=== PATIENT | male | born 1965 | race Caucasian/White ===

== ENCOUNTER 2022-01-08 20:02 | Inpatient (IN) | payer OTHER, SELFPAY ==
--- NOTE | ~2022-01-08 | XR_ITS ---
EXAMINATION: XR chest 2V DATE: 01/08/2022 21:05 INDICATION: Chest pressure. Shortness of breath. TECHNIQUE: Frontal and lateral views of the chest were obtained. COMPARISON: None. FINDINGS: A calcified right lung nodules consistent with old granulomatous disease. There are airspac e opacities in left lower lung zone. No pleural effusion or pneumothorax. The heart size is normal. A right internal jugular central venous catheter is seen with tip in the superior vena cava. IMPRESSION: 1. Airspace opacities in left lower lung zone, consistent with atelectasis versus pneumonia. Reviewed, dictated and finalized at location A. RT OR CONDENSER PRESS OPERATOR IMPRESSION: 1. Airspace opacities in left lower lung zone, consistent with atelectasis vers us pneumonia.
[2022-01-08 20:23] VITALS: BP 199/75; PULSE 113; RESP 18; TEMP 36.2; O2SAT 97
--- NOTE | 2022-01-08 20:28 | ECG_ITS ---
Measurements Intervals [place] Rate: 110 P: 64 UT: 166 QRS: 16 QRSD: 121 T: 104 QT: 346 QTc: 469 Interpretive Statements SINUS TACHYCARDIA INTRAVENTRICULAR CONDUCTION DELAY ST-T WAVE ABNORMALITY IN HIGH LATERAL LEADS- CONSIDER ISCHEMIA BASELINE ARTIFACT- II, III, AVR, AVF, V1, V3-V6 ABNORMAL ECG Electronically Signed On 01-09-2022 6:23:16 MORTGAGE FUNDER by Noel Obrien D.O.
--- NOTE | 2022-01-08 21:15 | ED.CHESTPAIN ---
HPI - Chest Pain General Chief Complaint: Chest Pain Stated Complaint: SOB, missed dialysis Time Seen by Provider: 01/08/22 20:56 Source: patient History of Present Illness HPI narrative: Patient presents with shortness of breath chest pain and swelling. Patient reports he been to dialysis for several months but has not gone to dialysis in approximately 2weeks since that time he has noted increasing swelling and shortness of breath. Since yesterday he also noted a squeezing sensation in his chest. Prior to his CABG she would get intermittent sharp pains in his chest. He denies fevers, chills, nausea, vomiting, diarrhea. Related Data Home Medications Medication Instructions Recorded Confirmed amlodipine 10 mg PO DAILY 01/09/22 01/09/22 atorvastatin 40 mg PO DAILY 01/09/22 01/09/22 bupropion HCl 150 mg PO QAM 01/09/22 01/09/22 carvedilol 25 mg PO BID 01/09/22 01/09/22 furosemide 80 mg PO BID 01/09/22 01/09/22 ranolazine 500 mg PO Q12H 01/09/22 01/09/22 sacubitril-valsartan [Entresto] 1 tablet PO BID 01/09/22 01/09/22 sevelamer carbonate 800 mg PO TID 01/09/22 01/09/22 tamsulosin 0.4 mg PO DAILY 01/09/22 01/09/22 ticagrelor [Brilinta] 90 mg PO Q12H 01/09/22 01/09/22 warfarin 1 mg PO DAILY 01/09/22 01/09/22 Allergies Allergy/AdvReac Type Severity Reaction Status Date / Time lisinopril Allergy Other Verified 01/08/22 21:44 Review of Systems Review of Systems: CONSTITUTIONAL: Denies fever, chills, or sweats. EYES: Denies visual changes, redness, or discharge. ENT: Denies rhinorrhea, congestion, sore throat, or otalgia. CARDIOVASCULAR: Denies palpitations, or edema. RESPIRATORY: Reports shortness of breath GASTROINTESTINAL: Denies abdominal pain, nausea, vomiting, or diarrhea. GENITOURINARY: Denies dysuria or hematuria. SKIN: Denies rash or itching. MUSCULOSKELETAL: Denies back pain, joint pain, or myalgia. NEUROLOGIC: Denies headache, numbness, dizziness, or weakness. PSYCHIATRIC: Denies anxiety or depression. All systems reviewed & are unremarkable except as noted in HPI and below PMFSH Past Medical History Medical History (Updated 01/09/22 @ 01:00 by Monico Palma MD) Chronic kidney disease Surgical History Surgical History (Updated 01/08/22 @ 21:17 by Monico Palma MD) Hx of CABG Exam Narrative: GENERAL: Well-appearing, well-nourished, and in no acute distress. HEAD: Normocephalic, atraumatic. EYES: PERRLA and EOMI. ENT: Nares clear, no rhinorrhea or epistaxis. Mucous membranes moist. NECK: Supple. No masses. No JVD CHEST: Clear to auscultation. No respiratory distress. No wheezes rales or rhonchi HEART: Regular rate and rhythm. No murmur heard. Normal peripheral pulses. ABDOMEN: Soft, nontender, nondistended, normal active bowel sounds. EXTREMITIES: Normal range of motion. 2+ pitting edema SKIN: Warm, dry, no rash. NEURO: No focal deficits. Alert and oriented x3. PSYCH: Normal mood and affect. Course Consultations Consultation #1: Discussed nephrology there is no on-call dialysis nurse plan to dialyze in the morning. Case cussed with hospitalist team who requested transfer as they feel patient needs emergent dialysis will attempt to contact other facilities Date: 01/08/22 Time: 22:51 Consultation #2: Contacted [facility] as well as the [facility] healthcare system and they report there is no bed availability for emergent dialysis plan to continue medical management in anticipation of dialysis tomorrow morning with our dialysis team. Date: 01/08/22 Time: 23:17 Vital Signs Vital signs: Vital Signs Temperature 36.2 C L 01/08/22 20:23 Pulse Rate 113 H 01/08/22 20:23 Respiratory Rate 18 01/08/22 20:23 Blood Pressure 199/75 H 01/08/22 20:23 Pulse Oximetry 97 01/08/22 20:23 Temperature 36.2 C L 01/08/22 20:23 Pulse Rate 112 H 01/09/22 01:43 Respiratory Rate 16 01/09/22 01:43 Blood Pressure 187/68 H 01/09/22 01:43 Pulse Oximetry 98
[2022-01-08 21:26] LABS: Basophils Percent Auto 0.6 % (0.2-1.2); Eosinophils Absolute Auto 0.2 K/mm3 (0-0.3); Eosinophils Percent Auto 3.8 % (0-4.4); Hematocrit 32.3 % (42.0-52.0); Hemoglobin 9.8 g/dL (14.0-18.0); Immature Granulocyte Absolute 0.02 K/mm3 (0.00-0.031); Immature Granulocyte Percent A 0.4 % (0-0.5); Lymphocytes Absolute Auto 1.21 K/mm3 (0.9-3.2); Lymphocytes Percent Auto 22.8 % (18.3-44.2); Mean Corpuscular HGB Conc 30.3 g/dl (32-36); Mean Corpuscular Hemoglobin 31.2 pg (26-34); Mean Corpuscular Volume 102.9 fl (80-100); Monocytes Absolute Auto 0.6 K/mm3 (0.1-0.6); Monocytes Percent Auto 10.9 % (2.6-8.5); Neutrophils Absolute Auto 3.3 K/mm3 (1.3-6.7); Neutrophils Percent Auto 61.5 % (45.5-73.1); Platelet Count Result 220 k/mm3 (150-375); Red Blood Count 3.14 M/mm3 (4.6-6.20); Red Cell Distribution Width 14.2 % (11.5-14.5); White Blood Count 5.3 K/mm3 (4.5-10.0)
[2022-01-08 21:33] LABS: Prothrombin Time 13.2 Seconds (11.1-14.7)
[2022-01-08 21:45] VITALS: BP 180/77; PULSE 104; RESP 18; O2SAT 97
[2022-01-08 21:48] VITALS: PULSE 102
[2022-01-08 21:49] LABS: Troponin I 0.031 ng/mL (0.000-0.034)
[2022-01-08 21:51] LABS: Alanine Aminotransferase 12 U/L (4-50); Albumin Level 3.7 g/dL (3.5-5.1); Alkaline Phosphatase 112 U/L (38-126); Anion Gap 7 mmol/L (8-16); Aspartate Amino Transferase 21 U/L (17-59); Bilirubin,Total 0.2 mg/dL (0.2-1.3); Blood Urea Nitrogen 86 mg/dL (9-20); Calcium 8.4 mg/dL (8.4-10.2); Carbon Dioxide 15 mmol/L (22-30); Chloride 119 mmol/L (98-107); Estimated CRCL calculation 12 ml/min; Estimated Glomerular Filt Rate 7; Glucose 284 mg/dL (65-110); Lipase 172 U/L (23-300); Sodium 141 mmol/L (137-145)
[2022-01-08] MEDS: ASPIRIN 81 MG CHEWABLE TABLET 324 MG PO (21:52)
[2022-01-08 22:10] VITALS: PULSE 105; RESP 18
[2022-01-08] MEDS: ALBUTEROL SULFATE NEB 2.5 MG/0.5 ML INH 5 MG INHALATION (22:13)
[2022-01-08] MEDS: SODIUM POLYSTYRENE SULFONONATE 15 GM/60 ML BTL 30 GM PO (22:56)
[2022-01-08] MEDS: CALCIUM GLUC 1,000 MG/NS 50 ML 1,000 MG/50 ML BAG 100 MG IVPB (22:57)
[2022-01-08] MEDS: DEXTROSE 50% 25 GM/50 ML SYRINGE IV PUSH (22:57)
[2022-01-08] MEDS: INSULIN HUMAN REGULAR (*BKC) 100 UNITS/ML 10 UNITS IV PUSH (22:58)
[2022-01-08 23:42] LABS: Troponin I 0.025 ng/mL (0.000-0.034)
[2022-01-08 23:58] LABS: SARS-CoV-2 RNA PCR Positive
[2022-01-09] VITALS (28 sets, daily range): BP systolic 130–197; BP diastolic 58–99; PULSE 78–116; RESP 0–20; TEMP 36.2–37.1; O2SAT 96–100; BMI 34.7
[2022-01-09 01:51] LABS: Anion Gap 8 mmol/L (8-16); Blood Urea Nitrogen 85 mg/dL (9-20); Carbon Dioxide 15 mmol/L (22-30); Chloride 120 mmol/L (98-107); Estimated CRCL calculation 12 ml/min; Estimated Glomerular Filt Rate 7; Glucose 93 mg/dL (65-110); Potassium 5.6 mmol/L (3.4-5.0); Sodium 143 mmol/L (137-145)
[2022-01-09] MEDS: FUROSEMIDE INJ 40 MG/4 ML VIAL IV PUSH (01:51)
--- NOTE | 2022-01-09 04:07 | PM.IMHP ---
H&P: HPI History of Present Illness Date/Time: 01/09/22 04:07 Chief Complaint: Shortness of breath/chest pain Narrative: This is the 56-year-old male with past medical history of congestive heart failure hypertension history of PE end-stage renal disease on hemodialysis, back injury presents to the ER for some chest discomfort and shortness of breath. He states he had recently been to [facility] with chest pain and was diagnosed with coronary artery disease and had 3 stents put in. He was bent planned to be discharged to [facility] for further rehabilitation which has also set up for his outpatient dialysis however he stopped at his son's house in [place] and did not go to get admitted to the nursing facility before it was already late to do so. Since he was in [facility] living with his son he was not able to get to his dialysis unit in [place]. There has also been delayed due to the snow 0 and unavailability of rides. His usual dialysis unit subsequently dropped him because of not going for the dialysis for some time. He states he has not been to the dialysis for the past 2 weeks now. He got worried since she does not have any place to get dialysis. He called [facility] and suggested to go to a nearby hospital to get dialysis. He went to [facility] day before yesterday for the same but they suggested to come to [facility] as they do not have dialysis unit there. He then came to [facility] for further evaluation. When asked if he had any symptoms of chest pain or shortness of breath, he mentions he does not have any of those symptoms however he was worried because he has missed so many dialysis treatments. He was noted to be hyperkalemic in the ER and was treated with calcium gluconate dextrose and insulin he was also given Kayexalate. The repeat potassium as lower down to 5.6. Professor Of Biological Sciences was contacted for dialysis and is planned to get dialyzed this morning. Attempt to transfer to other facility will can acutely dialyzed overnight was made however no facilities were available in the vicinity as per the ER physician. He states he used to be on warfarin for history of PE but he is not taking that anymore as he has been placed on Brilinta. Review of Systems Review of Systems: - CONSTITUTIONAL: Denies weight loss, fever and chills. - HEENT: Denies changes in vision and hearing - RESPIRATORY: Reports SOB and denies cough. - CV: Denies palpitations and reports some admitting CP. - GI: Denies abdominal pain, nausea, vomiting and diarrhea. - : Denies dysuria and urinary frequency. - MSK: Denies myalgia and joint pain. - SKIN: Denies rash and pruritus. - NEUROLOGICAL: Denies headache and syncope. - PSYCHIATRIC: Denies recent changes in mood. Denies anxiety and depression. All systems reviewed & are unremarkable except as noted in HPI and below Constitutional: Constitutional: Reports fatigue and Reports weakness Neurologic: Reports weakness Endocrine: Endocrine: Reports fatigue [facility] Past Medical History Medical History (Updated 01/09/22 @ 04:17 by Chivo Hussein MD) Chronic kidney disease Surgical History Surgical History (Updated 01/08/22 @ 21:17 by Monico Palma MD) Hx of CABG Meds Home Medications and Allergies Home Medications Medication Instructions Recorded Confirmed Type amlodipine 10 mg PO DAILY 01/09/22 01/09/22 History atorvastatin 40 mg PO DAILY 01/09/22 01/09/22 History bupropion HCl 150 mg PO QAM 01/09/22 01/09/22 History carvedilol 25 mg PO BID 01/09/22 01/09/22 History furosemide 80 mg PO BID 01/09/22 01/09/22 History ranolazine 500 mg PO Q12H 01/09/22 01/09/22 History sacubitril-valsartan [Entresto] 1 tablet PO BID 01/09/22 01/09/22 History sevelamer carbonate 800 mg PO TID 01/09/22 01/09/22 History tamsulosin 0.4 mg PO DAILY 01/09/22 01/09/22 History ticagrelor [Brilinta] 90 mg PO Q12H 01/09/22 01/09/22 History wa
[2022-01-09] MEDS: DEXTROSE 50% 25 GM/50 ML SYRINGE IV PUSH (04:31)
--- NOTE | 2022-01-09 04:41 | ADMGEN ---
This patient, Crow Hickman, was admitted to IMU Room 212-01 on 01/09/2022 at 0350. Patient/family oriented to hospital policies and general routines including ID bracelet, bed and alarms, visiting hours, pain management, procedures, bathroom and other care routines, personal items, smoking policy, room service/diet, and visiting hours. Information on how to activate the Rapid Response Team has been discussed. Patient/Family are encouraged to report perceived risks to care and to ask questions if they do not understand what they are told or what they should do.
[2022-01-09 04:56] LABS: Troponin I 0.042 ng/mL (0.000-0.034)
[2022-01-09] MEDS: SODIUM BICARBONATE TAB 650 MG TABLET PO ×3 (05:51→19:34)
[2022-01-09] MEDS: INSULIN HUMAN REGULAR (*BKC) 100 UNITS/ML 10 UNITS IV PUSH (06:57)
[2022-01-09 08:53] LABS: Glucose Point of Care 246 mg/dl (65-105)
[2022-01-09] MEDS: carvediloL 25 MG TABLET PO ×2 (09:51→19:32)
[2022-01-09] MEDS: amLODIPine BESYLATE 5 MG TABLET 10 MG PO (09:54)
[2022-01-09] MEDS: ATORVASTATIN 40 MG TABLET PO (09:54)
[2022-01-09] MEDS: APIXABAN 5 MG TABLET PO ×2 (09:54→20:44)
[2022-01-09] MEDS: SACUBITRIL/VALSARTAN 49-51 MG TABLET 1 TABLET PO ×2 (09:55→19:33)
[2022-01-09] MEDS: FUROSEMIDE 80 MG TABLET PO ×2 (09:55→19:33)
[2022-01-09] MEDS: buPROPion HCL XL (24 HR) 150 MG TABCR PO (09:55)
[2022-01-09] MEDS: RANOLAZINE 500 MG TAB.ER.12H PO ×2 (09:55→20:44)
[2022-01-09] MEDS: TAMSULOSIN HCL 0.4 MG CAPSULE PO (09:56)
[2022-01-09] MEDS: TICAGRELOR 90 MG TABLET PO ×2 (09:56→20:44)
[2022-01-09] MEDS: INSULIN GLARGINE (*BKC) 100 UNITS/ML 35 UNITS SUB-Q (09:56)
[2022-01-09] MEDS: INSULIN ASPART (*BKC) 100 UNITS/ML SUB-Q ×3 (10:03→19:34)
[2022-01-09] MEDS: ASPIRIN 81 MG CHEWABLE TABLET PO (10:12)
--- NOTE | 2022-01-09 12:34 | P.CONNP_ITS ---
Assessment and Plan Assessment and plan (1) End stage renal disease: Code(s): N18.6 - End stage renal disease Status: Chronic Assessment and Plan: * initiated on dialysis ~ 6 - 7 months ago * presumably due to diabetes and hypertension complicated by ischemic cardiomyopathy * has no primary plant breeder or outpatient dialysis unit at this time * has not had TECHNOLOGY ADMINISTRATOR/dialysis for approximately 2 weeks * HD today and continue dialysis 3x/week * case management to assist with arranging setting up outpatient dialysis (h owever, this has been an ongoing problems - see HPI) (2) Acute hyperkalemia: Code(s): E87.5 - Hyperkalemia Status: Acute Assessment and Plan: * due to missing dialysis x 2 weeks * suspect residual kidney function has helped keep potassium reasonably controlled * s/p medical management in ER yesterday evening * follow trend of K+ (3) Hypertension: Qualifiers: Hypertension type: unspecified Qualified Code(s): I10 - Essential (primary) hypertension Code(s): I10 - Essential (primary) hypertension Status: Chronic Assessment and Plan: * quite elevated on admission * doing better at this time * continue home BP medications * follow trend of hemodynamics (4) Congestive heart failure: Code(s): I50.9 - Heart failure, unspecified Status: Chronic Assessment and Plan: * known CAD and associated cardiomyopathy (last EF ~ 35%) * volume status reasonable at this time * fluid removal with HD to maintain euvolemia (5) Anemia: Code(s): D64.9 - Anemia, unspecified Status: Chronic Assessment and Plan: * due to ESRD * Epogen with HD * follow H/H (6) Diabetes mellitus: Code(s): E11.9 - Type 2 diabetes mellitus without complications Status: Chronic Assessment and Plan: * follow accuchecks * glycemic control Will continue to follow. History of Present Illness Reason for Consult Consult date: 01/09/22 Reason for consult: end stage renal disease Chief Complaint Chief complaint: Hyperkalemia History of Present Illness Narrative: The patient is a 56-year-old male with extensive past medical history as outlined below who presented to [facility] Emergency room with complaints of chest discomfort and shortness of breath. The patient was recently hospitalized at [facility] for chest pain and was subsequently diagnosed with coronary artery disease and apparently had three stents placed due to this issue/problem. By the time of discharge, it was recommended he go to a snf facility in [place] which was also supposed to transport him to and from a new outpatient dialysis unit. However, he did not go to the snf facility that he was arranged to go to and subsequently was never taken to/transported to his new outpatient dialysis unit for dialysis treatments. When he attempted to go back to the snf facility it was apparently too late to be admitted there and of course the subsequent whether Chi issues last week prevented him from going anywhere else in general. As he has not had dialysis for approximately two weeks, he became concerned and called [facility] about this issue who informed him he should probably go to a local hospital to receive dialysis. He subsequently presented to [facility] given these issues although by the time of his arrival to the ER and subsequent admission, he did not report any subsequent issues/ problems with chest pain or shortnes
--- NOTE | 2022-01-09 12:34 | PM.CNNEP ---
Assessment and Plan Assessment and plan (1) End stage renal disease: Code(s): N18.6 - End stage renal disease Status: Chronic Assessment and Plan: initiated on dialysis ~ 6 - 7 months ago presumably due to diabetes and hypertension complicated by ischemic cardiomyopathy has no primary solution director or outpatient dialysis unit at this time has not had IMPORT/EXPORT FREIGHT FORWARDER/dialysis for approximately 2 weeks HD today and continue dialysis 3x/week case management to assist with arranging setting up outpatient dialysis (however, this has been an ongoing problems - see HPI) (2) Acute hyperkalemia: Code(s): E87.5 - Hyperkalemia Status: Acute Assessment and Plan: due to missing dialysis x 2 weeks suspect residual kidney function has helped keep potassium reasonably controlled s/p medical management in ER yesterday evening follow trend of K+ (3) Hypertension: Qualifiers: Hypertension type: unspecified Qualified Code(s): I10 - Essential (primary) hypertension Code(s): I10 - Essential (primary) hypertension Status: Chronic Assessment and Plan: quite elevated on admission doing better at this time continue home BP medications follow trend of hemodynamics (4) Congestive heart failure: Code(s): I50.9 - Heart failure, unspecified Status: Chronic Assessment and Plan: known CAD and associated cardiomyopathy (last EF ~ 35%) volume status reasonable at this time fluid removal with HD to maintain euvolemia (5) Anemia: Code(s): D64.9 - Anemia, unspecified Status: Chronic Assessment and Plan: due to ESRD Epogen with HD follow H/H (6) Diabetes mellitus: Code(s): E11.9 - Type 2 diabetes mellitus without complications Status: Chronic Assessment and Plan: follow accuchecks glycemic control Will continue to follow. History of Present Illness Reason for Consult Consult date: 01/09/22 Reason for consult: end stage renal disease Chief Complaint Chief complaint: Hyperkalemia History of Present Illness Narrative: The patient is a 56-year-old male with extensive past medical history as outlined below who presented to [facility] Emergency room with complaints of chest discomfort and shortness of breath. The patient was recently hospitalized at [facility] for chest pain and was subsequently diagnosed with coronary artery disease and apparently had three stents placed due to this issue/problem. By the time of discharge, it was recommended he go to a custodial facility in [place] which was also supposed to transport him to and from a new outpatient dialysis unit. However, he did not go to the custodial facility that he was arranged to go to and subsequently was never taken to/transported to his new outpatient dialysis unit for dialysis treatments. When he attempted to go back to the custodial facility it was apparently too late to be admitted there and of course the subsequent whether Chi issues last week prevented him from going anywhere else in general. As he has not had dialysis for approximately two weeks, he became concerned and called [facility] about this issue who informed him he should probably go to a local hospital to receive dialysis. He subsequently presented to [facility] given these issues although by the time of his arrival to the ER and subsequent admission, he did not report any subsequent issues/ problems with chest pain or shortness of breath. Workup and evaluation in the emergency room demonstrated the patient to be hemodynamically stable (if not hypertensive) and in no apparent distress. Routine blood test demonstrated labs consistent with his known history of end-stage renal disease and associated hyperkalemia. He subsequently received medical management for his elevated potassium level initially an attempt wa
--- NOTE | 2022-01-09 13:04 | PM.IMPN ---
Progress Note: A&P Assessment and Plan (1) Acute hyperkalemia: Code(s): E87.5 - Hyperkalemia Status: Acute Assessment and Plan: Patient missed hemodialysis since past 2 weeks resulting in hyperkalemia. Potassium was 6.0 and he was treated appropriately. Repeat potassium better. Nephrology consulted for acute inpatient dialysis due to hyperkalemia and acidosis. Care coordination consultation for arrangement for outpatient hemodialysis since he does not have any outpatient center to go to (2) Congestive heart failure: Code(s): I50.9 - Heart failure, unspecified Status: Chronic Assessment and Plan: Patient present with shortness of breath and chest pain. EKG with sinus tachycardia, ST T wave changes in high lateral leads and interventricular conduction delay.Serial troponins up to 0.042 but could be related to the ESRD, CHF and hyperkalemia. CXR with airspace opacities in the left lower lung zone consistent with atelectasis versus pneumonia however he reports no clinical evidence of pneumonia with no obvious cough. EF is unknown. He was COVID positive so CXR findings could be related to COVID and/or CHF. Use HD to control fluid status. He is not hypoxic. His Entresto and carvedilol were resumed (having HD now so hyperkalemia should be control so will continue Entresto now). Will continue to monitor him for any worsening symptoms. Check Echo (3) COVID: Code(s): U07.1 - COVID-19 Status: Acute Assessment and Plan: Patient was COVID positive on routine swab on admission. CXR showing airspace opacity in the left lower lung zone which could be atelectasis versus pneumonia. He is not hypoxic and and no other signs/symptoms of active pneumonia. Will continue to monitor. (4) Coronary artery disease: Code(s): I25.10 - Atherosclerotic heart disease of [place] coronary artery without angina pectoris Status: Acute Assessment and Plan: CAD with recent stent x3 at [facility]. He is on Brilinta and aspirin which were resumed along with atorvastatin and carvedilol. EKG and Trop as mentioned above. Repeat Trop (5) End-stage renal disease on hemodialysis: Code(s): N18.6 - End stage renal disease; Z99.2 - Dependence on renal dialysis Status: Acute Assessment and Plan: Patient with ESRD on HD for the past 7-8 months. He has lost his place at the dialysis unit since he was noncompliant with treatment. audio visual collections coordinator need to set up outpatient dialysis (6) Diabetes mellitus: Code(s): E11.9 - Type 2 diabetes mellitus without complications Status: Chronic Assessment and Plan: The patient's blood glucose was reviewed on 01/09 Glucose is up and down so will monitor for now. Continue AccuCheks covering with sliding scale. Hypoglycemia protocol available as needed. Continue current medications. Check A1c (7) Hypertension: Qualifiers: Hypertension type: unspecified Qualified Code(s): I10 - Essential (primary) hypertension Code(s): I10 - Essential (primary) hypertension Status: Chronic Assessment and Plan: Patient's blood pressure was reviewed on 01/09 Blood pressure was eelvated but improved with resuming his home meds and with HD. Will continue current medications. (8) DVT prophylaxis: Code(s): Z29.9 - Encounter for prophylactic measures, unspecified Status: Acute Assessment and Plan: Miah Najera Date/time seen: 01/09/22 13:04 Interval history: 56yo male with ESRD, CHF, CAD, HTN and PE here for shortness of breath. He was recently in [facility] and had C with stents x3 placed. He was supposed to go to a rehab in [place] but instead he went ot his son's house in [place] and never followed up. He also has not had HD x 2 weeks. Currently having HD. He denies abd pain. No chest pain. No n/v. Exam Narrative: AF 97.1 197/98 80 20 100% ra Gen - NA
[2022-01-09] MEDS: SEVELAMER CARBONATE 800 MG TABLET PO ×2 (14:32→19:33)
--- NOTE | 2022-01-09 15:58 | PC.NURSE ---
Pt refusing all lab draws. Lab has made multiple attempts to no avail.
[2022-01-09 16:21] LABS: Glucose Point of Care 235 mg/dl (65-105)
[2022-01-09 16:56] LABS: Glucose Point of Care 145 mg/dl (65-105)
[2022-01-09 18:13] LABS: Troponin I 0.043 ng/mL (0.000-0.034)
[2022-01-09 18:17] LABS: Magnesium 1.8 mg/dL (1.6-2.3)
[2022-01-09] MEDS: MAGNESIUM SULF 1 GM/D5W 100 ML 1 GM/100 ML BAG IVPB (19:34)
[2022-01-09 21:14] LABS: Glucose Point of Care 232 mg/dl (65-105)
[2022-01-09 21:23] LABS: Hepatitis B Surface Antigen Negative (Negative)
[2022-01-09 21:29] LABS: HAV RESULT Negative (Negative); Hepatitis B Core IgM Result Negative (Negative)
[2022-01-09 21:40] LABS: Hepatitis B Surface Anti Res Negative
[2022-01-09 21:41] LABS: Hepatitis C Virus Antibody Reactive (Negative)
[2022-01-10] VITALS (8 sets, daily range): BP systolic 129–154; BP diastolic 67–77; PULSE 65–106; RESP 16–20; TEMP 36.7–36.9; O2SAT 97–100
--- NOTE | 2022-01-10 | ECHO_ITS ---
Patient Info Name: Crow Hickman Age: 56 years : 1965 Gender: Male Ht: 70 in Wt: 210 lbs BSA: 2.19 m2 HR: 97 bpm BP: 136 / 68 mmHg Heart Rhythm: Sinus Rhythm Exam Date: 01/10/2022 8:35 AM Exam Location: [facility] Patient Status: Outpatient Admit Date: 01/09/2022 Staff Ordering Physician: Tyler Wong MD Manager Primary: Flash Crawley, KRISSY, RT Attending Provider: Chivo Hussein MD Exam Type: CA echo doppler color flow Study Info Indications I50.9 - Heart failure, unspecified Complete two-dimensional, color flow and Doppler transthoracic echocardiogram is performed. Strain analysis performed. Summary 1. Complete two-dimensional, color flow and Doppler transthoracic echocardiogram is performed. 2. Left ventricular chamber dimension is mildly enlarged. 3. Left ventricular systolic function is mildly reduced, estimated at 40-45%. 4. There is severely increased left ventricular wall thickness. 5. The left ventricular diastolic function is grade I diastolic dysfunction. 6. Global longitudinal strain is abnormal at -6 %. 7. The basal inferoseptal, and mid inferoseptal are hypokinetic. 8. Left atrial chamber dimension is mildly enlarged. 9. The mitral valve has thickened leaflets and calcified annulus. 10. There is mild mitral valve regurgitation. 11. There is mild tricuspid valve regurgitation. 12. Strain analysis performed. Left Ventricle Left ventricular chamber dimension is mildly enlarged. Left ventricular systolic function is mildly reduced, estimated at 40-45%. There is severely increased left ventricular wall thickness. The left ventricular diastolic function is grade I diastolic dysfunction. Global longitudinal strain is abnormal at -6 %. The basal inferoseptal, and mid inferoseptal are hypokinetic. Right Ventricle Right ventricular chamber dimension is normal. Right ventricular systolic function is normal. Left Atria Left atrial chamber dimension is mildly enlarged. Right Atria Right atrial chamber dimension is normal. Atrial Septum Intact interatrial septum visualized by color flow imaging. Aortic Valve The aortic valve is trileaflet. There is mild aortic valve sclerosis. There is no aortic valve stenosis. There is trace aortic valve regurgitation. Pulmonic Valve The pulmonic valve is normal. There is no pulmonic valve stenosis. There is trace pulmonic regurgitation. Mitral Valve The mitral valve has thickened leaflets and calcified annulus. There is no mitral valve stenosis. There is mild mitral valve regurgitation. Tricuspid Valve The tricuspid valve leaflets are normal. There is no significant tricuspid valve stenosis. There is mild tricuspid valve regurgitation. Pericardium/Pleural The pericardium appears normal. There is trivial pericardial effusion. Inferior Vena Cava Normal inferior vena cava with <50% collapse upon inspiration consistent with elevated right atrial pressure, 10 mmHg. Aorta The aortic root size at the sinus of Valsalva is normal. The prox ascending aorta size is normal. Left Ventricular Outflow Tract Name Value Normal LVOT 2D LVOT Diameter 2.3 cm LVOT Doppler
[2022-01-10 07:24] LABS: Basophils Absolute Auto 0.1 K/mm3 (0.0-0.1); Eosinophils Absolute Auto 0.3 K/mm3 (0-0.3); Eosinophils Percent Auto 5.6 % (0-4.4); Hematocrit 35.5 % (42.0-52.0); Hemoglobin 11.2 g/dL (14.0-18.0); Immature Granulocyte Absolute 0.02 K/mm3 (0.00-0.031); Immature Granulocyte Percent A 0.4 % (0-0.5); Lymphocytes Absolute Auto 1.29 K/mm3 (0.9-3.2); Lymphocytes Percent Auto 26.9 % (18.3-44.2); Mean Corpuscular HGB Conc 31.5 g/dl (32-36); Mean Corpuscular Hemoglobin 30.9 pg (26-34); Mean Corpuscular Volume 97.8 fl (80-100); Mean Platelet Volume 10.2 fl (7.4-10.4); Monocytes Absolute Auto 0.7 K/mm3 (0.1-0.6); Monocytes Percent Auto 15.2 % (2.6-8.5); Neutrophils Absolute Auto 2.4 K/mm3 (1.3-6.7); Neutrophils Percent Auto 50.9 % (45.5-73.1); Platelet Count Result 237 k/mm3 (150-375); Red Blood Count 3.63 M/mm3 (4.6-6.20); White Blood Count 4.8 K/mm3 (4.5-10.0)
[2022-01-10 07:42] LABS: Iron 69 ug/dL (49-181)
[2022-01-10 07:43] LABS: Anion Gap 13 mmol/L (8-16); Blood Urea Nitrogen 68 mg/dL (9-20); CRP 1.4 mg/dL (<1.0); Calcium 8.8 mg/dL (8.4-10.2); Carbon Dioxide 17 mmol/L (22-30); Chloride 110 mmol/L (98-107); Estimated CRCL calculation 13 ml/min; Estimated Glomerular Filt Rate 8; Glucose 155 mg/dL (65-110); Lactate Dehydrogenase 436 U/L (313-618); Phosphorus 7.1 mg/dL (2.5-4.5); Potassium 4.8 mmol/L (3.4-5.0); Sodium 140 mmol/L (137-145)
[2022-01-10 07:54] LABS: Percent Iron Saturation 26 % (20-50)
[2022-01-10 08:08] LABS: Hemoglobin A1C 7.7 % (<5.7)
[2022-01-10 08:30] LABS: Glucose Point of Care 197 mg/dl (65-105)
[2022-01-10 08:40] LABS: Folic Acid 9.5 ng/mL (2.76->20)
--- NOTE | 2022-01-10 08:48 | PM.CNCAR ---
Assessment and Plan Assessment and plan (1) Nonsustained ventricular tachycardia: Code(s): I47.2 - Ventricular tachycardia Status: Acute Assessment and Plan: While it could be ischemic, the most obvious cause is related to electrolyte disturbances including hyperkalemia from numerous missed dialysis days. Echocardiogram is pending. Will request records from [facility]. For now, continue telemetry monitoring (2) Coronary artery disease: Code(s): I25.10 - Atherosclerotic heart disease of [place] coronary artery without angina pectoris Status: Acute Assessment and Plan: Recent PCI x3. Unknown details. Will request records. In the meantime continue dual anti-platelet therapy, ranolazine, Entresto, carvedilol, statin. Follow-up with clock maker at [facility] upon discharge ? Need for anticoagulation. This should be sorted out as he is already on dual anti-platelet therapy and receiving Eliquis despite end-stage renal disease/dialysis. In my opinion direct oral anticoagulants should not be used in end-stage renal disease patients. Would recommend that he continue warfarin if anticoagulation is needed. (3) Hypertension: Qualifiers: Hypertension type: unspecified Qualified Code(s): I10 - Essential (primary) hypertension Code(s): I10 - Essential (primary) hypertension Status: Chronic Assessment and Plan: Markedly above goal. Continue his regimen and dialysis and hopefully with volume removal with dialysis blood pressure will come down. (4) End stage renal disease: Code(s): N18.6 - End stage renal disease Status: Chronic Assessment and Plan: Numerous missed dialysis days. (5) COVID: Code(s): U07.1 - COVID-19 Status: Acute Assessment and Plan: Treatment per hospitalist (6) Acute hyperkalemia: Code(s): E87.5 - Hyperkalemia Status: Acute Assessment and Plan: Improved History of Present Illness History of Present Illness Consult date/time: 01/10/22 08:48 Requesting physician: Tyler Wong MD Consult reason: Other (vt) Reason For Visit: Hyperkalemia Narrative: Reason consultation: Nonsustained ventricular tachycardia Requesting provider: Dr. Wong Date of service 01/10/2022 History patient 56-year-old male who had recent PCI performed at [facility]. He had 3 stents placed within the past couple of weeks. Details of this are not known. He does state that he had at least 2 vessels though that had significant blockages. He missed 4 dialysis days in a row and subsequently came into the hospital because of shortness of breath and chest pain. He was markedly hyperkalemic at admission. His troponins trended minimally positive. He states his chest pain was different than the pain that he had prior to his stent placements. Chest pain is described as a squeezing though the was worsened with exertion. He has had shortness of breath also with the missed dialysis days as well as little bit of swelling. While on compliance monitor, he had an episode of nonsustained ventricular tachycardia. He no longer has any chest pain, shortness of breath. He has no syncope, presyncope, paroxysmal nocturnal dyspnea, orthopnea, edema palpitations. Review of Systems Review of Systems: All systems reviewed & are unremarkable except as noted in HPI and below Constitutional: Constitutional: Denies weakness Eyes: Eyes: Denies blurry vision ENT: Reports Normal hearing present Cardiovascular: Cardiovascular: Reports chest pain Respiratory: Respiratory: Reports dyspnea Gastrointestinal: Gastrointestinal: Denies abdominal pain Genitourinary: Genitourinary: Denies dysuria Musculoskeletal: Musculoskeletal: Denies neck pain Integumentary/Breasts: Skin/Breast: Denies dry skin Neurologic: Denies headache(s) Psychiatric: Psychiatric: Denies anxiety Endocrine: Endocrine:
[2022-01-10] MEDS: ASPIRIN 81 MG CHEWABLE TABLET PO (09:19)
[2022-01-10] MEDS: SEVELAMER CARBONATE 800 MG TABLET PO ×2 (09:20→12:24)
[2022-01-10] MEDS: INSULIN ASPART (*BKC) 100 UNITS/ML SUB-Q ×2 (09:20→12:23)
[2022-01-10] MEDS: carvediloL 25 MG TABLET PO (09:20)
[2022-01-10] MEDS: amLODIPine BESYLATE 5 MG TABLET 10 MG PO (09:20)
[2022-01-10] MEDS: ATORVASTATIN 40 MG TABLET PO (09:21)
[2022-01-10] MEDS: RANOLAZINE 500 MG TAB.ER.12H PO (09:21)
[2022-01-10] MEDS: INSULIN GLARGINE (*BKC) 100 UNITS/ML 35 UNITS SUB-Q (09:21)
[2022-01-10] MEDS: FUROSEMIDE 80 MG TABLET PO (09:21)
[2022-01-10] MEDS: APIXABAN 5 MG TABLET PO (09:21)
[2022-01-10] MEDS: buPROPion HCL XL (24 HR) 150 MG TABCR PO (09:21)
[2022-01-10 09:31] LABS: Free T4 Free Thyroxine Reflex 0.85 ng/dL (0.78-2.19)
[2022-01-10] MEDS: TICAGRELOR 90 MG TABLET PO (09:39)
[2022-01-10] MEDS: TAMSULOSIN HCL 0.4 MG CAPSULE PO (09:39)
[2022-01-10] MEDS: SODIUM BICARBONATE TAB 650 MG TABLET PO (09:39)
[2022-01-10] MEDS: SACUBITRIL/VALSARTAN 49-51 MG TABLET 1 TABLET PO (09:39)
[2022-01-10 11:50] LABS: Total Triiodothyronine (T3) 0.97 NG/ML (0.97-1.69)
--- NOTE | 2022-01-10 12:02 | PM.PNNEP ---
Progress Note: A&P Assessment and Plan (1) End stage renal disease: Code(s): N18.6 - End stage renal disease Status: Chronic Assessment and Plan: initiated on dialysis ~ 6 - 7 months ago presumably due to diabetes and hypertension complicated by cardiomyopathy/CHF has no primary barkeep or outpatient dialysis unit at this time has not had RETAIL LEASING AGENT/dialysis for approximately 2 weeks prior to admission HD yesterday (but only did 2 hours - refused to do more) and continue T/T/S schedule for now; HD tomorrow case management to assist with arranging setting up outpatient dialysis (however, this has been an ongoing problems since he is essentially homeless) (2) Acute hyperkalemia: Code(s): E87.5 - Hyperkalemia Status: Acute Assessment and Plan: due to missing dialysis x 2 weeks suspect residual kidney function has helped keep potassium reasonably controlled s/p medical management in ER on presentation however, cutting his HD treatment time not likely helping follow trend of K+ (3) Hypertension: Qualifiers: Hypertension type: unspecified Qualified Code(s): I10 - Essential (primary) hypertension Code(s): I10 - Essential (primary) hypertension Status: Chronic Assessment and Plan: quite elevated on admission doing better at this time continue home BP medications follow trend of hemodynamics (4) Congestive heart failure: Code(s): I50.9 - Heart failure, unspecified Status: Chronic Assessment and Plan: known CAD and reported cardiomyopatjy Echo results noted volume status reasonable at this time fluid removal with HD to maintain euvolemia (5) Anemia: Code(s): D64.9 - Anemia, unspecified Status: Chronic Assessment and Plan: due to ESRD Epogen with HD follow H/H (6) Diabetes mellitus: Code(s): E11.9 - Type 2 diabetes mellitus without complications Status: Chronic Assessment and Plan: follow accuchecks glycemic control Will continue to follow. Subjective Date/time seen: 01/10/22 12:02 Tolerated dialysis yesterday without any issues or problems - however, he ended his dialysis treatment early (had only 2 hours of treatment); episode of NSVT overnight by telemetry but the patient was symptomatic; no other acute issues/events overnight or earlier this AM. Exam Narrative: General: WD/WN male in NAD Heart: normal S1 and S2; no rub Lungs: clear to auscultation Abdomen: soft, nontender, nondistended, positive bowel sounds Extremities: no cyanosis or clubbing; no edema Skin: warm and dry Objective Data Vital Signs Vital Signs: Vital Signs Temp Pulse Pulse Resp BP Pulse Ox 01/10/22 12:00 36.8 C 92 18 129/77 100 01/10/22 09:20 65 01/10/22 08:00 36.9 C 65 16 136/73 99 01/10/22 06:00 93 01/10/22 05:42 97 01/10/22 04:00 36.7 C 91 16 136/68 98 01/10/22 02:00 96 01/10/22 00:00 36.8 C 102 H 20 154/67 H 98 01/09/22 22:00 87 01/09/22 20:00 36.7 C 99 20 154/69 H 98 01/09/22 19:32 87 01/09/22 19:24 88 01/09/22 18:00 96 01/09/22 16:00 36.9 C 95 16 139/79 97 01/09/22 15:18 36.7 C 90 16 Intake/Output Intake/Output: Intake & Output 01/07/22 01/08/22 01/09/22 01/10/22 23:59 23:59 23:59 23:59 Intake Total 50 1080 1310 Output Total 3276 2125 Balance 50 -7621 -713 Meds/Results Radiology Results: ITS Impressions Chest X-Ray 01/08/22 21:10 IMPRESSION: 1. Airspace opacities in left lower lung zone, consistent with atelectasis versus pneumonia. Labs Labs: Laboratory Tests 01/10/22 06:55 01/10/22 06:55
--- NOTE | 2022-01-10 12:02 | P.PNNP_ITS ---
Progress Note: A&P Assessment and Plan (1) End stage renal disease: Code(s): N18.6 - End stage renal disease Status: Chronic Assessment and Plan: * initiated on dialysis ~ 6 - 7 months ago * presumably due to diabetes and hypertension complicated by cardiomyopathy/CHF * has no primary technical aid or outpatient dialysis unit at this time * has not had SAFETY RISK LEAD/dialysis for approximately 2 weeks prior to admission * HD yesterday (but only did 2 hours - refused to do more) and continue T/T/S schedule for now; HD tomorrow * case management to assist with arranging setting up outpatient dialysis (however, this has been an ongoing problems since he is essentially homeless) (2) Acute hyperkalemia: Code(s): E87.5 - Hyperkalemia Status: Acute Assessment and Plan: * due to missing dialysis x 2 weeks * suspect residual kidney function has helped keep potassium reasonably controlled * s/p medical management in ER on presentation * however, cutting his HD treatment time not likely helping * follow trend of K+ (3) Hypertension: Qualifiers: Hypertension type: unspecified Qualified Code(s): I10 - Essential (primary) hypertension Code(s): I10 - Essential (primary) hypertension Status: Chronic Assessment and Plan: * quite elevated on admission * doing better at this time * continue home BP medications * follow trend of hemodynamics (4) Congestive heart failure: Code(s): I50.9 - Heart failure, unspecified Status: Chronic Assessment and Plan: * known CAD and reported cardiomyopatjy * Echo results noted * volume status reasonable at this time * fluid removal with HD to maintain euvolemia (5) Anemia: Code(s): D64.9 - Anemia, unspecified Status: Chronic Assessment and Plan: * due to ESRD * Epogen with HD * follow H/H (6) Diabetes mellitus: Code(s): E11.9 - Type 2 diabetes mellitus without complications Status: Chronic Assessment and Plan: * follow accuchecks * glycemic control Will continue to follow. Subjective Date/time seen: 01/10/22 12:02 Tolerated dialysis yesterday without any issues or problems - however, he ended his dialysis treatment early (had only 2 hours of treatment); episode of NSVT overnight by telemetry but the patient was symptomatic; no other acute issues/events overnight or earlier this AM. Exam Narrative: General: WD/WN male in NAD Heart: normal S1 and S2; no rub Lungs: clear to auscultation Abdomen: soft, nontender, nondistended, positive bowel sounds Extremities: no cyanosis or clubbing; no edema Skin: warm and dry Objective Data Vital Signs Vital Signs: Vital Signs Temp Pulse Pulse Resp BP Pulse Ox 01/10/22 12:00 36.8 C 92 18 129/77 100 01/10/22 09:20 65 01/10/22 08:00 36.9 C 65 16 136/73 99 01/10/22 06:00 93 01/10/22 05:42 97 01/10/22 04:00 36.7 C 91 16 136/68 98 01/10/22 02:00 96 01/10/22 00:00 36.8 C 102 H 20 154/67 H 98 01/09/22 22:00 87 01/09/22 20:00 36.7 C 99 20 154/69 H 98 01/09/22 19:32 87 01/09/22 19:24 88 01/09/22 18:00 96 01/09/22 16:00 36.9 C 95 16 139/79 97 01/09/22 15:18 36.7 C 90 16 Intake/Output Inta
[2022-01-10 12:44] LABS: Glucose Point of Care 242 mg/dl (65-105)
--- NOTE | 2022-01-10 12:44 | PM.IMPN ---
Progress Note: A&P Assessment and Plan (1) Acute hyperkalemia: Code(s): E87.5 - Hyperkalemia Status: Acute Assessment and Plan: Patient missed hemodialysis since past 2 weeks resulting in hyperkalemia. Potassium was 6.0 and he was treated appropriately. Repeat potassium better. Nephrology consulted for acute inpatient dialysis due to hyperkalemia and acidosis. Had HD with improvement of potassium. Potassium normal now. Follow and control with HD. (2) Congestive heart failure: Code(s): I50.9 - Heart failure, unspecified Status: Chronic Assessment and Plan: Patient present with shortness of breath and chest pain. EKG with sinus tachycardia, ST T wave changes in high lateral leads and interventricular conduction delay.Serial troponins up to 0.043 and flat but could be related to the ESRD, CHF and/or hyperkalemia (Not felt related to ACS). CXR with airspace opacities in the left lower lung zone consistent with atelectasis versus pneumonia however he reports no clinical evidence of pneumonia with no obvious cough. He was COVID positive so CXR findings could be related to COVID and/or CHF. Use HD to control fluid status. He is not hypoxic. Echo showing EF 40-45%, Grade I diastolic dysfunction and hypokinetic manuel. Continue Lasix, Entresto and carvedilol. Will continue to monitor him for any worsening symptoms. (3) COVID: Code(s): U07.1 - COVID-19 Status: Acute Assessment and Plan: Patient was COVID positive on routine swab on admission. CXR showing airspace opacity in the left lower lung zone which could be atelectasis versus pneumonia vs edema. He is not hypoxic and and no other signs/symptoms of active pneumonia. LDH normal and CRP 1.4. Will continue to monitor. Repeat CXR in the morning. (4) Coronary artery disease: Code(s): I25.10 - Atherosclerotic heart disease of [place] coronary artery without angina pectoris Status: Acute Assessment and Plan: CAD with recent stent x3 at [facility]. He is on Brilinta, aspirin, atorvastatin and carvedilol which have chucho resumed. EKG and Trop as mentioned above. (5) End-stage renal disease on hemodialysis: Code(s): N18.6 - End stage renal disease; Z99.2 - Dependence on renal dialysis Status: Acute Assessment and Plan: Patient with ESRD on HD for the past 7-8 months. He has lost his place at the dialysis unit since he was noncompliant with treatment. Care coordination consulted for arrangement for outpatient hemodialysis since he does not have any outpatient center to go to. Spoke with with Supervisor Shearing who states the patient continues to hang up on her. (6) Diabetes mellitus: Code(s): E11.9 - Type 2 diabetes mellitus without complications Status: Chronic Assessment and Plan: A1c 7.7. The patient's blood glucose was reviewed on 01/10 Glucose was 155 this morning fasting. Continue Lantus. Also on Novolog at meal times. Continue AccuCheks covering with sliding scale. Hypoglycemia protocol available as needed. Continue current medications except will advance Novolog. (7) Hypertension: Qualifiers: Hypertension type: unspecified Qualified Code(s): I10 - Essential (primary) hypertension Code(s): I10 - Essential (primary) hypertension Status: Chronic Assessment and Plan: Patient's blood pressure was reviewed on 01/10 Blood pressure was elevated but improved with resuming his home meds and with HD. Will continue current medications. (8) DVT prophylaxis: Code(s): Z29.9 - Encounter for prophylactic measures, unspecified Status: Acute Assessment and Plan: Miah Najera Date/time seen: 01/10/22 12:44 Interval history: 56yo male with ESRD, CHF, CAD, HTN and PE here for shortness of breath. He was recently in [facility] and had C with stents x3 placed. He was supposed to go to a rehab in [place] but
--- NOTE | 2022-01-10 15:07 | PM.DS ---
DS: Admitting Diagnosis Discharge Date 01/10/22 Admitting Diagnosis Short of breath DS: Discharge Diagnosis Discharge Diagnosis (1) Acute hyperkalemia: Code(s): E87.5 - Hyperkalemia Status: Acute Assessment and Plan: Patient missed hemodialysis since past 2 weeks resulting in hyperkalemia. Potassium was 6.0 and he was treated appropriately. Repeat potassium better. Nephrology consulted for acute inpatient dialysis due to hyperkalemia and acidosis. Had HD with improvement of potassium. Potassium normal now. (2) Congestive heart failure: Code(s): I50.9 - Heart failure, unspecified Status: Chronic Assessment and Plan: Patient present with shortness of breath and chest pain. EKG with sinus tachycardia, ST T wave changes in high lateral leads and interventricular conduction delay.Serial troponins up to 0.043 and flat but could be related to the ESRD, CHF and/or hyperkalemia (Not felt related to ACS). CXR with airspace opacities in the left lower lung zone consistent with atelectasis versus pneumonia however he reports no clinical evidence of pneumonia with no obvious cough. He was COVID positive so CXR findings could be related to COVID and/or CHF. We used HD to control fluid status. He is not hypoxic. Echo showing EF 40-45%, Grade I diastolic dysfunction and hypokinetic manuel. We continued Lasix, Entresto and carvedilol. (3) COVID: Code(s): U07.1 - COVID-19 Status: Acute Assessment and Plan: Patient was COVID positive on routine swab on admission. CXR showing airspace opacity in the left lower lung zone which could be atelectasis versus pneumonia vs edema. He is not hypoxic and and no other signs/symptoms of active pneumonia. LDH normal and CRP 1.4. (4) Coronary artery disease: Code(s): I25.10 - Atherosclerotic heart disease of [place] coronary artery without angina pectoris Status: Acute Assessment and Plan: CAD with recent stent x3 at [facility]. He is on Brilinta, aspirin, atorvastatin and carvedilol which have chucho resumed. EKG and Trop as mentioned above. (5) End-stage renal disease on hemodialysis: Code(s): N18.6 - End stage renal disease; Z99.2 - Dependence on renal dialysis Status: Acute Assessment and Plan: Patient with ESRD on HD for the past 7-8 months. He has lost his place at the dialysis unit since he was noncompliant with treatment. Care coordination consulted for arrangement for outpatient hemodialysis since he does not have any outpatient center to go to. Spoke with with Creative Guru who states the patient continues to hang up on her. (6) Diabetes mellitus: Code(s): E11.9 - Type 2 diabetes mellitus without complications Status: Chronic Assessment and Plan: A1c 7.7. The patient's blood glucose was monitored closely Glucose was 155 this morning fasting. We continued Lantus. Also on Novolog at meal times. Monitored with AccuCheks covering with sliding scale. Hypoglycemia protocol was available as needed. (7) Hypertension: Qualifiers: Hypertension type: unspecified Qualified Code(s): I10 - Essential (primary) hypertension Code(s): I10 - Essential (primary) hypertension Status: Chronic Assessment and Plan: Patient's blood pressure was monitored closely Blood pressure was elevated initially but improved with resuming his home meds and with HD. (8) Nonsustained ventricular tachycardia: Code(s): I47.2 - Ventricular tachycardia Status: Acute Assessment and Plan: Called by RN for a 31 beat run of NSVT. Patient was sleeping at the time and was asymptomatic. Magnesium level was 1.8 and this was replaced. Mag 2.0 the next morning. Probably related to electrolyte abnormalities. Cards consulted ordered last night and appreciate their input. Their recommendations reviewed. Echo as mentioned below. (9) Hepatitis C a
--- NOTE | 2022-01-10 16:41 | PC.NURSE ---
Informed MD that patient is leaving AMA and refusal to sign paperwork at this time.
[2022-01-13 14:12] LABS: Hepatitis B Core Ab Total Nonreactive (Nonreactive)
--- NOTE | 2022-01-14 09:07 | PC.NURSE ---
HEP B Core is non-reactive. HEP C RNA is elevated at 20.0e6. Dr. Wong aware. Results faxed to Dr. Groves.
--- NOTE | 2022-01-21 09:59 | PC.NURSE ---
HCV RNA PCR log IUs/ml- 7.30. Dr. Wong aware. Faxed results to Dr. Groves.
== END 2022-01-10 14:58 | disposition left against medical advice (07) | DRG 425 ==
LOC: ANHED 23:18 → ANHIMU 01-09 02:11
PROVIDERS: Family Medicine; Internal Medicine Nephrology; Admitting Provider Internal Medicine; Emergency Provider Emergency Medicine; PCP Emergency Medicine; Visit Provider Internal Medicine
DX: E87.5 Hyperkalemia (principal); Z91.19 Patient's noncompliance with other medical treatment and regimen; I13.2 Hypertensive heart and chronic kidney disease with heart failure and with stage 5 chronic kidney disease, or end stage renal disease; I25.5 Ischemic cardiomyopathy; U07.1 COVID-19; E87.2 Acidosis; E11.22 Type 2 diabetes mellitus with diabetic chronic kidney disease; N18.6 End stage renal disease; I47.2 Ventricular tachycardia; D63.1 Anemia in chronic kidney disease; E11.42 Type 2 diabetes mellitus with diabetic polyneuropathy; I50.9 Heart failure, unspecified; N40.0 Benign prostatic hyperplasia without lower urinary tract symptoms; I25.10 Atherosclerotic heart disease of native coronary artery without angina pectoris; R76.8 Other specified abnormal immunological findings in serum; F17.210 Nicotine dependence, cigarettes, uncomplicated; Z91.15 Patient's noncompliance with renal dialysis; Z99.2 Dependence on renal dialysis; Z95.5 Presence of coronary angioplasty implant and graft; Z86.711 Personal history of pulmonary embolism; Z95.1 Presence of aortocoronary bypass graft; Z59.00 Homelessness unspecified; E66.9 Obesity, unspecified; Z68.33 Body mass index [BMI] 33.0-33.9, adult
CPT/HCPCS: 36415; 71046; 80048; 80053; 80074; 82607; 82728; 82746; 82948; 83036; 83540; 83550; 83615; 83690; 83735; 84100; 84439; 84443; 84480; 84484; 85025; 85610; 85730; 86140; 86704; 86706; 87522; 93005; 93306; 94640; 96365; 96374; 96375; 97161; 97165; 99285; A9270; C9803; G0257; G0378; G0379; J0610; J1644; J1815; J1940; J3475; U0003; U0005